=== PATIENT | male | born 1975 | race Caucasian/White ===

== ENCOUNTER 2017-09-07 16:53 | Emergency (ER) | payer OTHER ==
[2016-12-20 09:13] VITALS: Wt 86.4 kg
[~2017-09-07 16:53] MED LIST: CEPH-13 PO; CIPR-214 PO; DIPH-740 PO; HYDR-4309 PO; IBUP-1687 PO; SULF-198 PO; TRAM-420 PO; vitamins
--- NOTE | 2017-09-07 17:10 | ER Report ---
History and Physical Time Seen By MD: 17:10 Hx. of Stated Complaint: PT VERY IRRITABLE AND DIAPHORETIC, FULL BODY SPASMS, VOMITING PROFUSELY HPI/ROS CHIEF COMPLAINT: Cramping, dehydration HISTORY OF PRESENT ILLNESS: 42-year-old male patient presents to emergency room with complaint of cramping, dehydration. Patient states that he has been having cramping since this afternoon at approximately 2:00. He states these had some vomiting. He states he is not to keep anything down. He denies having any fevers , chills, diarrhea. Patient states that he's had this in the past which likely related to dehydration. Patient states he also has a history of kidney stones. Patient states that the cramps have been significant for the last for several minutes before resolving. He states that he is not taking any medication for this. Patient is concerned this could be related to dehydration. REVIEW OF SYSTEMS: Respiratory: No cough, no dyspnea. Cardiovascular: No chest pain, no palpitations. Gastrointestinal: No vomiting, no abdominal pain. Musculoskeletal: As noted above Allergies: Coded Allergies: amoxicillin (Verified Allergy, Unknown, 09/07/17) Home Meds Discontinued Scripts Hydrocodone Bit/Acetaminophen (NORCO 5-325 TABLET) 1 Each Tablet, 1 EACH PO Q4H for PAIN, #20 TAB 0 Refills Prov:MIGUELITO REYES MD 12/20/16 Ciprofloxacin Hcl (CIPROFLOXACIN HCL) 500 Mg Tablet, 250 MG PO Q12H for UTI MDD 500mg, #6 TAB Take half of 500mg tablet by mouth twice a day for 6 days. Prov:MIGUELITO REYES MD 12/20/16 Past Medical/Surgical History Patient has a past medical history of acute kidney failure, kidney stones, muscle spasms, auditory canals, reactive hypoglycemia, psoriasis, occasional alcohol use. Patient has surgical history of bilateral knee surgery, abdominal hernia repair. Reviewed Nurses Notes: Yes Hx Smoking: No Smoking Status: Never Smoker Hx Substance Use Disorder: No Hx Alcohol Use: Yes (occ) Constitutional Vital Sign - Last 24 Hours 09/07/17 09/07/17 09/07/17 09/07/17 16:57 16:58 17:00 17:08 Temp 97.0 Pulse 76 80 Resp 22 B/P (MAP) 164/117 (133) 150/107 150/107 (121) Pulse Ox 90 98 O2 Delivery Room Air 09/07/17 09/07/17 09/07/17 09/07/17 17:15 17:23 17:30 17:38 Pulse 69 77 B/P (MAP) 165/79 (107) 147/105 (119) Pulse Ox 99 96 09/07/17 09/07/17 09/07/17 09/07/17 17:45 17:53 17:58 18:00 Pulse 87 83 B/P (MAP) 143/117 (126) 156/99 (118) Pulse Ox 92 97 09/07/17 09/07/17 09/07/17 09/07/17 18:13 18:15 18:28 18:30 Pulse 78 79 B/P (MAP) 152/102 (119) 153/103 (120) Pulse Ox 93 93 09/07/17 09/07/17 09/07/17 09/07/17 18:43 18:45 18:58 19:00 Pulse 74 74 B/P (MAP) 154/100 (118) 142/94 (110) Pulse Ox 96 94 09/07/17 09/07/17 09/07/17 09/07/17 19:13 19:15 19:20 19:30 Pulse 73 ??? B/P (MAP) 135/91 (106) 127/85 (99) Pulse Ox 93 95 09/07/17 09/07/17 19:30 19:35 Temp 98.4 Pulse ??? Intake and Output 09/07/17 09/07/17 09/08/17 15:00 23:00 07:00 Intake Total 2000 ml Balance 2000 ml Physical Exam General Appearance: The patient is alert, has no immediate need for airway protection and no current signs of toxicity. ENT: Tympanic membranes are pearly-goetz, auditory canals are patent, mucous membranes are moist. Respiratory: Chest is non tender, lungs are clear to auscultation. Cardiac: regular rate and rhythm Gastrointestinal: Abdomen is soft and non tender, no masses, bowel sounds normal. Musculoskeletal: Neck: Neck is supple and non tender. Extremities have full range of motion and are non tender. Skin: No rashes or lesions. DIFFERENTIAL DIAGNOSIS: After history and physical exam differential diagnosis was considered for dehydration, electrolyte imbalance, spasms. Medical Decision Making Data Points Result Diagram: 09/07/17 1702 09/07/17 1702 Laboratory Hematology Test 09/07/17 17:02 Red Blood Count 7.40 M/uL (4.00-5.60) Mean Corpuscular Volume 93.1 fL (80.0-96.0) Mean Corpuscular Hemoglobin 31.9 pg (26.0-33.0) Mean Corpuscular Hemoglobin Concent 34.3 g/dL (32.0-36.0) Red Cell Distribution Width 13.8 % (11.5-14.5) Mean Platelet Volume 9.3 fL (7.2-11.1) Neutrophils (%) (Auto) 79.5 % (39.4-72.5) Lymphocytes (%) (Auto) 12.1 % (17.6-49.6) Monocytes (%) (Auto) 5.4 % (4.1-12.4) Eosinophils (%) (Auto) 2.5 % (0.4-6.7) Basophils (%) (Auto) 0.5 % (0.3-1.4) Nucleated RBC Relative Count (auto) 0.7 /100WBC Neutrophils # (Auto) 17.1 K/uL (2.0-7.4) Lymphocytes # (Auto) 2.6 K/uL (1.3-3.6) Monocytes # (Auto) 1.2 K/uL (0.3-1.0) Eosinophils # (Auto) 0.5 K/uL (0.0-0.5) Basophils # (Auto) 0.1 K/uL (0.0-0.1) Nucleated RBC Absolute Count (auto) 0.15 K/uL Peripheral Blood Smear Yes Y/N Sodium Level 144 mmol/L (137-145) Potassium Level 4.0 mmol/L (3.5-5.0) Chloride Level 96 mmol/L (98-107) Carbon Dioxide Level 16 mmol/L (22-30) Blood Urea Nitrogen 21 mg/dl (9-21) Creatinine 2.70 mg/dl (0.66-1.25) Glomerular Filtration Rate Calc 25.9 Random Glucose 153 mg/dl (75-110) Calcium Level 13.6 mg/dl (8.4-10.2) Total Bilirubin 1.5 mg/dl (0.2-1.3) Aspartate Amino Transf (AST/SGOT) 30 U/L (0-35) Alanine Aminotransferase (ALT/SGPT) 38 U/L (0-56) Alkaline Phosphatase 203 U/L (0-126) Total Protein 11.5 gm/dl (6.3-8.2) Albumin 5.9 g/dl (3.5-5.0) Chemistry Test 09/07/17 17:02 White Blood Count 21.5 k/uL (4.5-11.0) Red Blood Count 7.40 M/uL (4.00-5.60) Hemoglobin 23.6 g/dL (14.0-18.0) Hematocrit 68.9 % (42.0-52.0) Mean Corpuscular Volume 93.1 fL (80.0-96.0) Mean Corpuscular Hemoglobin 31.9 pg (26.0-33.0) Mean Corpuscular Hemoglobin Concent 34.3 g/dL (32.0-36.0) Red Cell Distribution Width 13.8 % (11.5-14.5) Platelet Count 409 K/uL (150-450) Mean Platelet Volume 9.3 fL (7.2-11.1) Neutrophils (%) (Auto) 79.5 % (39.4-72.5) Lymphocytes (%) (Auto) 12.1 % (17.6-49.6) Monocytes (%) (Auto) 5.4 % (4.1-12.4) Eosinophils (%) (Auto) 2.5 % (0.4-6.7) Basophils (%) (Auto) 0.5 % (0.3-1.4) Nucleated RBC Relative Count (auto) 0.7 /100WBC Neutrophils # (Auto) 17.1 K/uL (2.0-7.4) Lymphocytes # (Auto) 2.6 K/uL (1.3-3.6) Monocytes # (Auto) 1.2 K/uL (0.3-1.0) Eosinophils # (Auto) 0.5 K/uL (0.0-0.5) Basophils # (Auto) 0.1 K/uL (0.0-0.1) Nucleated RBC Absolute Count (auto) 0.15 K/uL Peripheral Blood Smear Yes Y/N Glomerular Filtration Rate Calc 25.9 Calcium Level 13.6 mg/dl (8.4-10.2) Total Bilirubin 1.5 mg/dl (0.2-1.3) Aspartate Amino Transf (AST/SGOT) 30 U/L (0-35) Alanine Aminotransferase (ALT/SGPT) 38 U/L (0-56) Alkaline Phosphatase 203 U/L (0-126) Total Protein 11.5 gm/dl (6.3-8.2) Albumin 5.9 g/dl (3.5-5.0) ED Course/Re-evaluation ED Course Patient is a medical exam room, history and physical were obtained. The differential diagnoses were considered. On examination patient is diaphoretic, having episodic cramping. An IV was started, patient received liter normal saline. A CBC, CMP were obtained. Patient had an elevated white count of 21,000 , with a left shift. With those likely secondary to dehydration. Patient had a creatinine of 2.7. I discussed the findings with Dr. Curtis, hospitalist. He felt the patient could go home as long as he can tolerate by mouth fluids after receiving couple of liters of normal saline. Patient received a second liter of normal saline. After that he states he is feeling significantly improved. I did trial him with a 500 cc bottle of water. He was able to tolerate that without any problems. We will go ahead and discharge him home at this time. He is to push fluids tonight. We will have him get repeat lab work done tomorrow, CMP. I discussed this with patient who verbalized understanding and agreement. I'll contact him tomorrow with the lab results. Decision to Disposition Date: Sep 07, 2017 Decision to Disposition Time: 19:14 Depart Departure Latest Vital Signs Vital Signs Date Time Temp Pulse Resp B/P (MAP) Pulse Ox O2 Delivery O2 Flow Rate FiO2 09/07/17 19:35 ??? 09/07/17 19:30 98.4 09/07/17 19:30 127/85 (99) 09/07/17 19:20 95 09/07/17 16:58 22 Room Air Impression: Primary Impression: Dehydration Condition: Improved Disposition: HOME OR SELF-CARE New Scripts No Active Prescriptions or Reported Meds Patient Instructions: Dehydration (ED) Additional Instructions: Increase fluid intake. Follow up tomorrow for repeat labs to make sure that your are rehydrated. Get plenty of rest. Return to the ER if condition worsens. CASTILLO PARSONS LITIGATION COORDINATOR Sep 07, 2017 17:10
[2017-09-07] MEDS ORDERED: NS(*) 0.9% 1000 ML BAG 1,000 ML IV ONE ×2 (17:15→17:55)
[2017-09-07] MEDS ORDERED: LORazepam 2 MG/ML VIAL IVP ONE (17:15)
[2017-09-07 17:42] LABS: PLATELET COUNT, AUTOMATED 409 K/uL (150-450)
[2017-09-07 19:30] VITALS: BP 127/85
== END 2017-09-07 19:45 | disposition home or self-care (01) ==
LOC: ER 17:06
DX: E86.0 Dehydration (principal)
CPT/HCPCS: 85025; 96361; 96374; 99284; J2060; J7030; 82040; 82247; 82310; 82374; 82435; 82565; 82947; 84075; 84132; 84155; 84295; 84450; 84460; 84520

== ENCOUNTER 2017-09-29 20:07 | Emergency (ER) | payer OTHER ==
[2016-12-20 09:13] VITALS: Wt 86.4 kg
[2017-09-29 20:13] VITALS: BP 175/97
[2017-09-29] MEDS ORDERED: CEPH500C24 PO (20:26)
[2017-09-29] MEDS ORDERED: SULF-198 PO (20:26)
--- NOTE | 2017-09-29 20:26 | ER Report ---
History and Physical Time Seen By MD: 20:11 HPI/ROS CHIEF COMPLAINT: Redness and swelling of leg. HISTORY OF PRESENT ILLNESS: 42-year-old male with a long history of recurrent cellulitis of his legs. He's cut a spot on his left thigh he is worried about. He thinks he might have cellulitis again. He is been very sick with it in the past and need to be admitted for IV antibiotics. Allergies: Coded Allergies: amoxicillin (Verified Allergy, Unknown, 09/29/17) Home Meds Active Scripts Cephalexin Monohydrate (CEPHALEXIN) 500 Mg Cap, 500 MG PO TID, #20 CAP TAKE 1 CAPSULE BY MOUTH EVERY SIX HOURS Prov:ELIZABETH ORELLANA DO 09/29/17 Sulfamethoxazole/Trimet 800-160 Mg Tab (BACTRIM DS TABLET) 1 Each Tablet, 1 TAB PO Q12H for infection, #14 Prov:ELIZABETH ORELLANA DO 09/29/17 Reviewed Nurses Notes: Yes Old Medical Records Reviewed: Yes Hx Smoking: No Smoking Status: Never Smoker Hx Substance Use Disorder: No Hx Alcohol Use: Yes (occ) Constitutional Vital Sign - Last 24 Hours 09/29/17 20:13 Temp 98.2 Pulse 78 Resp 20 B/P (MAP) 175/97 Pulse Ox 95 O2 Delivery Room Air Physical Exam General appearance: Alert no distress. Respiratory: Chest is non tender, lungs are clear to auscultation. Cardiac: Regular rate and rhythm Extremities: Examination of the left thigh reveals redness and induration on the medial posterior aspect of the thigh. There is tenderness on palpation. There is no lymphangitis or lymphadenopathy in the left groin. There is pain radiating down the left ankle. There is no clinical findings on examination of the ankle. The left lower cavity is neurovascularly intact. DIFFERENTIAL DIAGNOSIS: After history and physical exam differential diagnosis was considered for cellulitis, contact otitis, induration, pressure sore, occult trauma Medical Decision Making ED Course/Re-evaluation ED Course Patient was admitted to an examination room. H&P was done. The differential diagnoses was considered. On clinical examination. Patient has findings consistent with cellulitis. He'll be covered with a 2 drug regime Keflex and Bactrim. Patient advised to apply heating pad to the affected area. He is advised to follow-up with primary care if unimproved in 3-5 days. Decision to Disposition Date: September 29, 2017 Decision to Disposition Time: 20:24 Depart Departure Latest Vital Signs Vital Signs Date Time Temp Pulse Resp B/P (MAP) Pulse Ox O2 Delivery O2 Flow Rate FiO2 09/29/17 20:13 98.2 78 20 175/97 95 Room Air Impression: Primary Impression: Cellulitis of left thigh Additional Impression: Psoriasis Condition: Improved Disposition: HOME OR SELF-CARE Referrals: SHADY ROBIN MD, FARRUKH MD New Scripts Cephalexin Monohydrate (CEPHALEXIN) 500 Mg Cap 500 MG PO TID, #20 CAP TAKE 1 CAPSULE BY MOUTH EVERY SIX HOURS Prov: ELIZABETH ORELLANA DO 09/29/17 Sulfamethoxazole/Trimet 800-160 Mg Tab (BACTRIM DS TABLET) 1 Each Tablet 1 TAB PO Q12H for infection, #14 Prov: ELIZABETH ORELLANA DO 09/29/17 Patient Instructions: Cellulitis (ED) Additional Instructions: Apply heating pad to the affected area 30 minutes 2-3 times per day Take antibiotics until gone Take ibuprofen 200 mg 3 tablets 3 times a day as needed for pain relief Follow-up with primary care doctors listed on your paperwork if unimproved in 3- 5 days Problem Qualifiers ELIZABETH ORELLANA DO September 29, 2017 20:26
[2017-09-29] MEDS ORDERED: TRIMETH/SULFA DS 160-800MG TAB PO ONE (20:30)
[2017-09-29] MEDS ORDERED: CEPHALEXIN MONO 500 MG CAP PO ONE (20:30)
== END 2017-09-29 20:34 | disposition home or self-care (01) ==
LOC: ER 20:13
DX: L03.116 Cellulitis of left lower limb (principal); L40.9 Psoriasis, unspecified
CPT/HCPCS: 99282

== ENCOUNTER 2017-11-09 20:26 | Emergency (ER) | payer SELFPAY ==
[2016-12-20 09:13] VITALS: Wt 79.4 kg
[~2017-11-09 20:26] MED LIST changes: +CEPH500C24 PO
[2017-11-09] MEDS ORDERED: OMEP-218 PO (20:38)
[2017-11-09] MEDS ORDERED: KETOROLAC 60 MG/2 ML VIAL IM ONE (20:40)
--- NOTE | 2017-11-09 20:55 | ER Report ---
History and Physical Time Seen By MD: 20:54 Hx. of Stated Complaint: PATIENT REPORTS THAT HE WAS SEEN FOR CELLULITIS IN HIS LEFT LEG. HE REPORTS THAT THE CELLULITIS HAS CLEARED UP BUT NOW IS HAVING DULL PAIN AND SWELLING IN LEFT CALF HPI/ROS CC: Left lower extremity swelling HPI:Patient is a 42-year-old male here with complaints of left leg pain. Patient reports that approximately 2 months ago he was evaluated for left calf/ leg cellulitis which has since resolved. Patient reports having fullness sensation, cramping pain of the calf which seems to be improving. Patient was unable to get an appointment so he decided to come the emergency department for further evaluation today. There are no sensory neural deficits distal to the site at time of evaluation. Is able to ambulate without issue. Denies further trauma to the site. There is no erythema or obvious swelling at site. Patient denies fevers, chills, chest pain, shortness of breath, cyanosis. REVIEW OF SYSTEMS: Respiratory: No cough, no dyspnea. Cardiovascular: No chest pain, no palpitations. Gastrointestinal: No vomiting, no abdominal pain. Musculoskeletal: No back pain. Neuro: No focal neuro deficits Allergies: Coded Allergies: amoxicillin (Verified Allergy, Unknown, 09/29/17) Home Meds Active Scripts Naproxen Sodium (ALEVE) 220 Mg Capsule, 440 MG PO TID for 7 Days, #21 CAPSULE Prov:RADHIKA BRITO DO 11/09/17 Reported Medications Omeprazole Magnesium (PRILOSEC OTC) 20 Mg Tablet.dr, 1 TAB PO QDAY, TAB 11/09/17 Discontinued Scripts Cephalexin Monohydrate (CEPHALEXIN) 500 Mg Cap, 500 MG PO TID, #20 CAP TAKE 1 CAPSULE BY MOUTH EVERY SIX HOURS Prov:ELIZABETH ORELLANA DO 09/29/17 Sulfamethoxazole/Trimet 800-160 Mg Tab (BACTRIM DS TABLET) 1 Each Tablet, 1 TAB PO Q12H for infection, #14 Prov:ELIZABETH ORELLANA DO 09/29/17 Hx Smoking: No Smoking Status: Never Smoker Hx Substance Use Disorder: No Hx Alcohol Use: Yes (occ) Constitutional Vital Sign - Last 24 Hours 11/09/17 11/09/17 11/09/17 11/09/17 20:31 20:33 20:41 20:56 Temp 99.1 Pulse 82 82 79 Resp 20 B/P (MAP) 160/104 160/104 (122) Pulse Ox 93 93 93 O2 Delivery Room Air 11/09/17 11/09/17 11/09/17 21:11 21:26 21:41 Pulse 79 78 78 Pulse Ox 95 94 93 Physical Exam General Appearance: The patient is alert, has no immediate need for airway protection and no current signs of toxicity. No acute distress Eyes: Pupils equal and round no injection. Respiratory: Chest is non tender, lungs are clear to auscultation. Cardiac: regular rate and rhythm Gastrointestinal: Abdomen is soft and non tender, no masses, bowel sounds normal. Musculoskeletal: Neck: Neck is supple and non tender. Extremities have full range of motion and + mild tenderness on palpation of left calf. Skin: No rashes or lesions, No erythema DIFFERENTIAL DIAGNOSIS: After history and physical exam differential diagnosis was considered for contusion, DVT, superficial thrombophlebitis, cyst Medical Decision Making Data Points Result Diagram: 11/09/17205211/09/172052 Laboratory Hematology Test 11/09/17 20:53 Red Blood Count 5.81 M/uL (4.00-5.60) Mean Corpuscular Volume 92.4 fL (80.0-96.0) Mean Corpuscular Hemoglobin 32.0 pg (26.0-33.0) Mean Corpuscular Hemoglobin Concent 34.6 g/dL (32.0-36.0) Red Cell Distribution Width 13.5 % (11.5-14.5) Mean Platelet Volume 8.3 fL (7.2-11.1) Neutrophils (%) (Auto) 65.0 % (39.4-72.5) Lymphocytes (%) (Auto) 24.2 % (17.6-49.6) Monocytes (%) (Auto) 5.9 % (4.1-12.4) Eosinophils (%) (Auto) 4.0 % (0.4-6.7) Basophils (%) (Auto) 0.9 % (0.3-1.4) Nucleated RBC Relative Count (auto) 0.1 /100WBC Neutrophils # (Auto) 6.9 K/uL (2.0-7.4) Lymphocytes # (Auto) 2.6 K/uL (1.3-3.6) Monocytes # (Auto) 0.6 K/uL (0.3-1.0) Eosinophils # (Auto) 0.4 K/uL (0.0-0.5) Basophils # (Auto) 0.1 K/uL (0.0-0.1) Nucleated RBC Absolute Count (auto) 0.01 K/uL Sodium Level 140 mmol/L (137-145) Potassium Level 3.7 mmol/L (3.5-5.0) Chloride Level 102 mmol/L (98-107) Carbon Dioxide Level 22 mmol/L (22-30) Blood Urea Nitrogen 22 mg/dl (9-21) Creatinine 1.30 mg/dl (0.66-1.25) Glomerular Filtration Rate Calc > 60.0 Random Glucose 125 mg/dl (75-110) Calcium Level 9.4 mg/dl (8.4-10.2) Total Bilirubin 0.9 mg/dl (0.2-1.3) Aspartate Amino Transf (AST/SGOT) 21 U/L (0-35) Alanine Aminotransferase (ALT/SGPT) 33 U/L (0-56) Alkaline Phosphatase 115 U/L (0-126) Total Protein 7.8 g/dl (6.3-8.2) Albumin 4.2 g/dl (3.5-5.0) Chemistry Test 11/09/17 20:53 White Blood Count 10.6 k/uL (4.5-11.0) Red Blood Count 5.81 M/uL (4.00-5.60) Hemoglobin 18.6 g/dL (14.0-18.0) Hematocrit 53.6 % (42.0-52.0) Mean Corpuscular Volume 92.4 fL (80.0-96.0) Mean Corpuscular Hemoglobin 32.0 pg (26.0-33.0) Mean Corpuscular Hemoglobin Concent 34.6 g/dL (32.0-36.0) Red Cell Distribution Width 13.5 % (11.5-14.5) Platelet Count 268 K/uL (150-450) Mean Platelet Volume 8.3 fL (7.2-11.1) Neutrophils (%) (Auto) 65.0 % (39.4-72.5) Lymphocytes (%) (Auto) 24.2 % (17.6-49.6) Monocytes (%) (Auto) 5.9 % (4.1-12.4) Eosinophils (%) (Auto) 4.0 % (0.4-6.7) Basophils (%) (Auto) 0.9 % (0.3-1.4) Nucleated RBC Relative Count (auto) 0.1 /100WBC Neutrophils # (Auto) 6.9 K/uL (2.0-7.4) Lymphocytes # (Auto) 2.6 K/uL (1.3-3.6) Monocytes # (Auto) 0.6 K/uL (0.3-1.0) Eosinophils # (Auto) 0.4 K/uL (0.0-0.5) Basophils # (Auto) 0.1 K/uL (0.0-0.1) Nucleated RBC Absolute Count (auto) 0.01 K/uL Glomerular Filtration Rate Calc > 60.0 Calcium Level 9.4 mg/dl (8.4-10.2) Total Bilirubin 0.9 mg/dl (0.2-1.3) Aspartate Amino Transf (AST/SGOT) 21 U/L (0-35) Alanine Aminotransferase (ALT/SGPT) 33 U/L (0-56) Alkaline Phosphatase 115 U/L (0-126) Total Protein 7.8 g/dl (6.3-8.2) Albumin 4.2 g/dl (3.5-5.0) EKG/Imaging Imaging Duplex LLE: No acute DVT, see official report for further details ED Course/Re-evaluation ED Course Patient is a 42-year-old male here with complaints of left calf swelling in the setting of a recent diagnosis of cellulitis 2 months prior which has since resolved. There are no obvious signs of swelling or erythema at the site. Neurovascular exam is intact distal to the site. Patient denies prior history of clotting, chest pain, shortness breath, pleuritic chest pain, fever or cough. Basic labs showed no leukocytosis, electrolyte abnormalities. Duplex imaging of the extremity was completed to rule out clot formation. Duplex showed no acute DVT or cobblestoning. Patient was given a prescription for naproxen 500 mg for pain control. Patient was advised to follow-up with his family doctor next week turn promptly if his symptoms worsen or fail to improve. Decision to Disposition Date: Nov 09, 2017 Decision to Disposition Time: 21:47 Depart Departure Latest Vital Signs Vital Signs Date Time Temp Pulse Resp B/P (MAP) Pulse Ox O2 Delivery O2 Flow Rate FiO2 11/09/17 21:41 78 93 11/09/17 20:33 160/104 (122) 11/09/17 20:31 99.1 20 Room Air Impression: Primary Impression: Leg pain, left Condition: Condition Unchanged Disposition: HOME OR SELF-CARE New Scripts Naproxen Sodium (ALEVE) 220 Mg Capsule 440 MG PO TID for 7 Days, #21 CAPSULE Prov: RADHIKA BRITO DO 11/09/17 Patient Instructions: Leg Pain (ED) Additional Instructions: Ultrasound imaging of the leg showed no signs of clot or infection. Please take Naproxen, ice, rest, elevate the site as needed for pain control. Please follow up with your family doctor in the next week. Please return promptly if you develop worsening pain, swelling, redness, numbness. RADHIKA BRITO DO Nov 09, 2017 20:55
[2017-11-09 21:01] LABS: PLATELET COUNT, AUTOMATED 268 K/uL (150-450)
[2017-11-09] MEDS ORDERED: NAPR220C12 PO (21:51)
[2017-11-09 22:01] VITALS: BP 139/90
--- NOTE | 2017-11-09 22:05 | RADIOLOGY IMAGING REPORT ---
FACILITY: [facility] PATIENT NAME: Saurabh Bender : 1975 MR: [id number] V: [id number] EXAM DATE: ORDERING PHYSICIAN: RADHIKA BRITO TECHNOLOGIST: Location: [facility] [place] Patient: Saurabh Bender : 1975 Visit/Account:[id number] Date of Sevice: 11/09/2017 VENOUS DOPP LOW LEFT EXTREMITY HISTORY: Pain in calf. ADDITIONAL HISTORY: None. COMPARISON: None. FINDINGS: The left common femoral, femoral, and popliteal veins are fully compressible and patent. The paired veins of the calf are normal. Small amount of edema is identified in the subcutaneous tissues at the area of pain in the calf. IMPRESSION: 1. No evidence of DVT left lower extremity. 2. Subcutaneous edema patient's area of pain, medial left calf. Report Dictated By: Karlos Rico at 11/09/2017 9:58 PM Report E-Signed By: Karlos Rico at 11/09/2017 10:01 PM WSN:[id number]
[2017-11-10] MEDS ORDERED: DOXY-181 PO (22:08)
[2017-11-10] MEDS ORDERED: TRAM-420 PO (22:08)
== END 2017-11-09 22:42 | disposition home or self-care (01) ==
LOC: ER 20:38
DX: M79.605 Pain in left leg (principal)
CPT/HCPCS: 36415; 82040; 82247; 82310; 82374; 82435; 82565; 82947; 84075; 84132; 84155; 84295; 84450; 84460; 84520; 85025; 99284

== ENCOUNTER 2017-11-10 21:29 | Emergency (ER) | payer SELFPAY ==
[2016-12-20 09:13] VITALS: Wt 79.5 kg
[~2017-11-10 21:29] MED LIST changes: +NAPR220C12 PO; +OMEP-218 PO
--- NOTE | 2017-11-10 21:41 | ER Report ---
History and Physical Time Seen By MD: 21:41 HPI/ROS CHIEF COMPLAINT: Left calf rash HISTORY OF PRESENT ILLNESS: Patient is a 42-year-old male here returning with a left calf rash. Patient was evaluated yesterday for pain and swelling and was found to have no DVT on duplex imaging. Today he developed an erythematous rash consistent with cellulitis. Patient denies any injury, numbness. He does complain of worsening edema at the site. Denies fevers, chest pain, shortness breath, nausea, vomiting. REVIEW OF SYSTEMS: Constitutional: No fever, no chills. Eyes: No discharge. ENT: No sore throat. Cardiovascular: No chest pain, no palpitations. Respiratory: No cough, no shortness of breath. Gastrointestinal: No abdominal pain, no vomiting. Genitourinary: No hematuria. Musculoskeletal: No back pain. Skin: + erythema of right calf, blanching and tender to palpation Neurological: No headache. Allergies: Coded Allergies: amoxicillin (Verified Allergy, Unknown, 11/10/17) Home Meds Active Scripts Tramadol Hcl (TRAMADOL HCL) 50 Mg Tablet, 50 MG PO Q6H Y for PAIN, #12 TAB 0 Refills Prov:RADHIKA BRITO DO 11/10/17 Doxycycline Hyclate (DOXYCYCLINE HYCLATE) 100 Mg Capsule, 100 MG PO BID for 7 Days, #14 CAPSULE Prov:RADHIKA BRITO DO 11/10/17 Naproxen Sodium (ALEVE) 220 Mg Capsule, 440 MG PO TID for 7 Days, #21 CAPSULE Prov:RADHIKA BRITO DO 11/09/17 Reported Medications Omeprazole Magnesium (PRILOSEC OTC) 20 Mg Tablet.dr, 1 TAB PO QDAY, TAB 11/09/17 Discontinued Scripts Cephalexin Monohydrate (CEPHALEXIN) 500 Mg Cap, 500 MG PO TID, #20 CAP TAKE 1 CAPSULE BY MOUTH EVERY SIX HOURS Prov:ELIZABETH ORELLANA DO 09/29/17 Sulfamethoxazole/Trimet 800-160 Mg Tab (BACTRIM DS TABLET) 1 Each Tablet, 1 TAB PO Q12H for infection, #14 Prov:ELIZABETH ORELLANA DO 09/29/17 Hx Smoking: No Smoking Status: Never Smoker Hx Substance Use Disorder: No Hx Alcohol Use: Yes (occ) Physical Exam General Appearance: The patient is alert, has no immediate need for airway protection and no signs of toxicity. NAD Eyes: Pupils equal and round no pallor or injection. ENT, Mouth: Mucous membranes are moist. Respiratory: There are no retractions, lungs are clear to auscultation. Cardiovascular: Regular rate and rhythm. Gastrointestinal: Abdomen is soft and non tender, no masses, bowel sounds normal. Neurological: No focal deficits Skin: + erythema of right calf, blanching and tender to palpation Musculoskeletal: Neck is supple non tender. Left Lower extremity TTP on calf with mild edema, + fill ROM of lower extremities DIFFERENTIAL DIAGNOSIS: After history and physical exam differential diagnosis was considered for cellulitis, abscess, trauma, clot formation Medical Decision Making ED Course/Re-evaluation ED Course Patient is a 42-year-old male here with complaints of left calf erythema and edema. I did see the patient several days prior at which time there was no rash or erythematous skin surrounding the area of tenderness. Patient remained neurovascularly intact distal to the rash and painful area. Duplex imaging during the prior visit showed no DVTs or clot formation. Edema has not changed since time of onset. Rash is more prominent now and consistent with cellulitis. Patient was given a dose of clindamycin and a prescription for tramadol as well as doxycycline. Patient voiced understanding of plan and agreed to return promptly if symptoms worsen. Decision to Disposition Date: Dec 10, 2017 Decision to Disposition Time: 22:49 Depart Departure Impression: Primary Impression: Cellulitis of leg Condition: Improved Disposition: HOME OR SELF-CARE New Scripts Tramadol Hcl (TRAMADOL HCL) 50 Mg Tablet 50 MG PO Q6H Y for PAIN, #12 TAB 0 Refills Prov: RADHIKA BRITO DO 11/10/17 Doxycycline Hyclate (DOXYCYCLINE HYCLATE) 100 Mg Capsule 100 MG PO BID for 7 Days, #14 CAPSULE Prov: RADHIKA BRITO DO 11/10/17 Patient Instructions: Cellulitis (ED), Doxycycline (By mouth) Additional Instructions: Please take one tablet of doxycycline twice daily for 7 days. Please return promptly if the rash spreads, he develop worsening swelling, worsening fevers. You may take 1 tablet of tramadol every 6-8 hours as needed for pain. RADHIKA BRITO DO Nov 10, 2017 21:41
[2017-11-10] MEDS ORDERED: CLINDAMYCIN IM ONE (22:05)
[2017-11-10] MEDS ORDERED: TRAM-420 PO (22:08)
[2017-11-10] MEDS ORDERED: DOXY-181 PO (22:08)
[2017-11-10 22:10] VITALS: BP 143/86
== END 2017-11-10 22:43 | disposition home or self-care (01) ==
LOC: ER 21:47
DX: L03.116 Cellulitis of left lower limb (principal)
CPT/HCPCS: 96372; 99282; J3490

== ENCOUNTER 2017-11-19 19:09 | Emergency (ER) | payer SELFPAY ==
[2016-12-20 09:13] VITALS: BMI 31.8
[~2017-11-19 19:09] MED LIST changes: +DOXY-181 PO
[2017-11-19 19:17] VITALS: BP 152/95
[2017-11-19] MEDS ORDERED: SULF-198 PO (19:33)
[2017-11-19] MEDS ORDERED: CEPH500T7 PO (19:33)
--- NOTE | 2017-11-19 19:33 | ER Report ---
History and Physical Time Seen By MD: 19:19 HPI/ROS CHIEF COMPLAINT: Left leg swelling and redness HISTORY OF PRESENT ILLNESS: Patient is a 42-year-old male who presents to ED with complaint of left leg swelling and redness that he has had for the past 10 days. He states that he was seen 10 days ago in the emergency department and did have an ultrasound completed of his leg which was negative for DVT. He states that he come back the next day and was noted to have some cellulitis and was prescribed doxycycline. He states that this helped some but has still noticed some redness and he finish the doxycycline yesterday. He states that he has had a history of recurrent cellulitis and multiple areas but his left leg has been one of those areas. He denies any fever. He has not noted any nausea or vomiting. He states that it is somewhat painful. He does have a significant history of psoriasis which he is not in any medication for. REVIEW OF SYSTEMS: Constitutional: No fever, no chills. Cardiovascular: No chest pain, no palpitations. Respiratory: No cough, no shortness of breath. Gastrointestinal: No abdominal pain, no vomiting. Musculoskeletal: No back pain. Skin: See history of present illness. Neurological: No headache. Allergies: Coded Allergies: amoxicillin (Verified Allergy, Unknown, 11/10/17) Home Meds Active Scripts Naproxen Sodium (ALEVE) 220 Mg Capsule, 440 MG PO TID for 7 Days, #21 CAPSULE Prov:RADHIKA BRITO DO 11/09/17 Reported Medications Omeprazole Magnesium (PRILOSEC OTC) 20 Mg Tablet.dr, 1 TAB PO QDAY, TAB 11/09/17 Discontinued Scripts Tramadol Hcl (TRAMADOL HCL) 50 Mg Tablet, 50 MG PO Q6H Y for PAIN, #12 TAB 0 Refills Prov:RADHIKA BRITO DO 11/10/17 Doxycycline Hyclate (DOXYCYCLINE HYCLATE) 100 Mg Capsule, 100 MG PO BID for 7 Days, #14 CAPSULE Prov:RADHIKA BRITO DO 11/10/17 Reviewed Nurses Notes: Yes Old Medical Records Reviewed: Yes Hx Smoking: No Smoking Status: Never Smoker Hx Substance Use Disorder: No Hx Alcohol Use: Yes (occ) Constitutional Vital Sign - Last 24 Hours 11/19/17 19:17 Temp 98.9 Pulse 77 Resp 16 B/P (MAP) 152/95 Pulse Ox 95 O2 Delivery Room Air Physical Exam General Appearance: The patient is alert, has no immediate need for airway protection and no signs of toxicity. Patient appears to be in no acute distress. Respiratory: There are no retractions, lungs are clear to auscultation. Cardiovascular: Regular rate and rhythm. Skin: Has faint erythema and slight swelling appreciated the left lower extremity. The erythema is primarily in the left ankle and distal calf area. No area of fluctuance is appreciated. PT and DP pulses are 2+ with normal capillary refill. Normal sensation. Musculoskeletal: Neck is supple non tender. DIFFERENTIAL DIAGNOSIS: After history and physical exam differential diagnosis was considered for left leg swelling including DVT, cellulitis, leg injury. Medical Decision Making ED Course/Re-evaluation ED Course Discussed with patient that it appears that he does have some continued cellulitis left lower extremity. Does appear quite mild at this time. Will prescribe some Keflex and Bactrim for the next 10 days. Advised to follow-up with his primary care provider in the next 3-4 days. He should monitor for signs and symptoms of worsening infection including redness, swelling, fever. Decision to Disposition Date: Nov 19, 2017 Decision to Disposition Time: 19:31 Depart Departure Latest Vital Signs Vital Signs Date Time Temp Pulse Resp B/P (MAP) Pulse Ox O2 Delivery O2 Flow Rate FiO2 11/19/17 19:17 98.9 77 16 152/95 95 Room Air Impression: Primary Impression: Left leg cellulitis Condition: Improved Disposition: HOME OR SELF-CARE New Scripts Sulfamethoxazole/Trimet 800-160 Mg Tab (BACTRIM DS TABLET) 1 Each Tablet 1 TAB PO Q12H, #20 TAB Prov: NICKI KUHN PA-C 11/19/17 Cephalexin 500 Mg Tab (KEFLEX 500 MG TAB) 500 Mg Tablet 500 MG PO Q6H, #40 TAB Prov: NICKI KUHN PA-C 11/19/17 Patient Instructions: Cellulitis (ED) Additional Instructions: Monitor for signs and symptoms of worsening infection including worsening redness, swelling, discharge, fever. Take Anaprox as prescribed. Follow-up with primary care provider in 2-3 days. If having any worsening or concerning symptoms may return to the emergency department. NICKI KUHN PA-C Nov 19, 2017 19:33
[2017-11-19] MEDS ORDERED: CEPHALEXIN 500 MG CAP TH 2 CAP/BOTTLE PO ONE (19:35)
[2017-11-19] MEDS ORDERED: TRIMETHOPRIM/SULFA 160-800 TH 2 TAB/BOTTLE PO ONE (19:35)
== END 2017-11-19 19:41 | disposition home or self-care (01) ==
LOC: ER 19:21
DX: L03.116 Cellulitis of left lower limb (principal)